=== PATIENT | female | born 1950 | race Caucasian/White ===

== ENCOUNTER 2017-11-23 13:52 | Emergency (ER) | payer OTHER ==
[~2017-11-23] VITALS: Ht 160 cm; Wt 83.3 kg
[2017-11-23 14:46] LABS: APPEARANCE SL.HAZY ((CLEAR)); BILIRUBIN SMALL; BLOOD NEGATIVE; COLOR AMBER ((YELLOW)); GLUCOSE (STRIP) NEGATIVE; KETONES 5; LEUKOCYTES SMALL; NITRITE NEGATIVE; PROTEIN (STRIP) 100; SPECIFIC GRAVITY 1.024 (1.000-1.030)
[2017-11-23 15:12] LABS: BACTERIA NONE SEEN /HPF; EPITHELIAL CELLS RARE /HPF; HYALINE CASTS 20-30 /LPF; MUCUS 4+ /LPF; UCUL ADDED? YES; WHITE BLOOD CELLS 30-40 /HPF (0-5)
[2017-11-23 15:33] LABS: HEMATOCRIT 39.8 % (36.0-46.0); MCH 29.5 PG (29.0-34.0); MCHC 35.2 G/DL (30.0-36.0); PLATELET COUNT 311 K/uL (156-360); RBC DIS.WIDTH-SD 45.7 % (39-53); RED BLOOD COUNT 4.74 M/uL (3.80-5.20); WHITE BLOOD COUNT 13.4 K/uL (4.1-10.2)
[2017-11-23 16:03] LABS: CHLORIDE 102 MEQ/L (99-109); POTASSIUM 2.9 MEQ/L (3.7-5.4); SODIUM 139 MEQ/L (136-147)
[2017-11-23 16:08] LABS: CREATININE 0.6 MG/DL (0.6-1.3); GFR ESTIMATE (CALCULATED) > 59 mL/min/; GLUCOSE 108 mg/dL (70-99); LIPASE 8 U/L (1.0-51.0); UREA NITROGEN (BUN) 14 mg/dL (9-23)
[2017-11-23] MEDS ORDERED: FLAGYL500 MG PO (17:17)
[2017-11-23] MEDS ORDERED: CIPRO500 MG PO (17:17)
[2017-11-23] MEDS ORDERED: ZOFRAN ODT8 MG PO (17:17)
[2017-11-23 17:57] VITALS: BP 152/84
[2017-11-24] MEDS ORDERED: COMPAZINE10 MG PO (15:38)
== END 2017-11-23 17:58 | disposition home or self-care (01) ==
LOC: EME 13:52
DX: K57.32 Diverticulitis of large intestine without perforation or abscess without bleeding (principal); E87.6 Hypokalemia; I10 Essential (primary) hypertension; K21.9 Gastro-esophageal reflux disease without esophagitis; Z98.890 Other specified postprocedural states; Z90.49 Acquired absence of other specified parts of digestive tract
CPT/HCPCS: 74177; 80048; 81003; 83690; 85027; 87086; 99281; 99285; J2405; J7030

== ENCOUNTER 2017-11-24 12:52 | Emergency (ER) | payer OTHER ==
[~2017-11-24] VITALS: Ht 160 cm; Wt 84.1 kg
[~2017-11-24 12:52] MED LIST: CIPRO500 MG PO; FLAGYL500 MG PO; ZOFRAN ODT8 MG PO
[2017-11-24 13:31] LABS: HEMATOCRIT 38.9 % (36.0-46.0); HEMOGLOBIN 13.7 G/DL (11.9-15.5); MCH 29.7 PG (29.0-34.0); MCHC 35.2 G/DL (30.0-36.0); MCV 84.2 FL (83-99); PLATELET COUNT 289 K/uL (156-360); RBC DIS.WIDTH-CV 15.1 % (11.8-14.6); RBC DIS.WIDTH-SD 45.8 % (39-53); RED BLOOD COUNT 4.62 M/uL (3.80-5.20); WHITE BLOOD COUNT 11.9 K/uL (4.1-10.2)
[2017-11-24 13:46] LABS: CHLORIDE 101 MEQ/L (99-109); POTASSIUM 3.3 MEQ/L (3.7-5.4); SODIUM 136 MEQ/L (136-147); TOTAL BILIRUBIN 0.8 MG/DL (0.0-1.0)
[2017-11-24 13:52] LABS: ALKALINE PHOSPHATASE 74 IU/L (3-129); ALT (GPT) 68 IU/L (3-49); AST (GOT) 33 IU/L (2-34); CREATININE 0.6 MG/DL (0.6-1.3); GFR ESTIMATE (CALCULATED) > 59 mL/min/; GLUCOSE 130 mg/dL (70-99); TOTAL PROTEIN 6.8 G/DL (6.4-8.3); UREA NITROGEN (BUN) 10 mg/dL (9-23)
[2017-11-24] MEDS ORDERED: COMPAZINE10 MG PO (15:38)
[2017-11-24 15:55] VITALS: BP 137/93
== END 2017-11-24 15:55 | disposition home or self-care (01) ==
LOC: EME 12:52
PROVIDERS: Physician Assistant
DX: R10.13 Epigastric pain (principal); R11.2 Nausea with vomiting, unspecified; R19.7 Diarrhea, unspecified; Z98.890 Other specified postprocedural states; E87.6 Hypokalemia; Z88.2 Allergy status to sulfonamides
CPT/HCPCS: 80053; 85027; 99281; 99283; J0780; J2550